=== PATIENT | female | born 1960 | race Two or more races ===

== ENCOUNTER → 2017-01-30 | Outpatient (CLI) | payer OTHER ==
--- NOTE | 2017-01-30 16:29 | RADRPT ---
PROCEDURE: Right knee radiographs. CLINICAL INDICATION: Right knee pain. TECHNIQUE: Four views. Weight bearing. Frontal, lateral, oblique, and patellar view. COMPARISON: No prior studies are available for comparison. FINDINGS: There is no fracture or dislocation. The soft tissues are normal. There are degenerative changes with osteophytes arising from all 3 joint compartment margins. There is lateral joint compartment narrowing. There is no lytic or blastic lesion. There is no radiopaque foreign body. IMPRESSION: 1. Moderate degenerative changes of the right knee. 2. Otherwise unremarkable study. RPTAT: QQ .Edgar Dickerson MD, MD Date Time Electronically viewed and signed by .Edgar Dickerson MD, on 01/30/2017 16:29 .R/
--- NOTE | 2017-01-31 04:29 | HKNOTE ---
DATE OF SERVICE: 01/30/2017 CHIEF COMPLAINT: Right knee pain. HISTORY OF PRESENT ILLNESS: This is a 56-year-old female complaining of chronic right knee pain. T he pain has been worsening over the last year. She is using a cane for ambulation. She has difficu lty navigating stairs and ambulating long distances. She has difficulty sitting for extended period of time. She is unable to perform her activities of daily living. She has had previous right knee arthroscopic meniscectomies by Dr. Lewis in 10/[address] [facility]. She has also had previo us corticosteroid injections of the right knee without any pain relief. She has a history of type 1 diabetes. Her blood sugars are in the 200s according to the and her last hemoglobin A1c le michael was 7.3. She is currently talking to her primary care physician regarding an insulin pump. She denies any groin or back pain. She has no other complaints. GAIT: Antalgic gait with a limp. RIGHT KNEE EXAMINATION: Neutral alignment. Previous arthroscopy incisions have healed, 0 to 120 de grees range of motion, stable to varus valgus stress, negative Nicolas, negative anterior drawer, ne gative posterior drawer, positive Chris's. MOTOR STRENGTH: 5/5 hamstrings, quadriceps, tibialis anterior, gastrocsoleus. MRI RIGHT KNEE: MRI from 08/2015 demonstrates a large complex tear of the lateral meniscus anterior horn and posterior horn as well as an oblique tear of the medial meniscus with full thickness carti matthias loss of bilateral compartments. X-RAYS RIGHT KNEE: 4 views of the right knee demonstrate tricompartmental osteoarthritis with bone- on-bone arthritic changes of the lateral compartment as well as the patellofemoral joint with margin al osteophytes and subchondral sclerosis. IMPRESSION: A 56-year-old female with right knee osteoarthritis who has failed nonoperative managem ent. PLAN: I discussed treatment options with Mrs. Grullon and her . I discussed repeat injectio ns, physical therapy and pain medications versus operative intervention including a right total knee arthroplasty. At this time, they would like to proceed with surgery. We will request authorizatio n for right total knee arthroplasty. She will follow up following approval of the authorization. Dictated By: AURELIO GUNTER/VIOLETA Conf#: [id number] [facility]#: [id number]
== END | disposition home or self-care (01) ==
LOC: HKI 14:20
PROVIDERS: ATTEND Orthopaedic Surgery Adult Reconstructive Orthopaedic Surgery
DX: M17.11 Unilateral primary osteoarthritis, right knee (principal); E10.9 Type 1 diabetes mellitus without complications
CPT/HCPCS: G0463

== ENCOUNTER → 2018-01-05 | Outpatient (CLI) | END | disposition home or self-care (01) ==

== ENCOUNTER → 2018-04-23 | Outpatient (CLI) | payer OTHER ==
--- NOTE | 2018-04-23 12:45 | CONS ---
Date/Time of Note Date/Time of Note DATE: 04/23/18 TIME: 12:21 Assessment/Plan Assessment/Plan Assessment/Plan 57-year-old female presented my clinic today to discuss potential right total knee arthroplasty. She does have a medical history significant for type 1 diabetes. In her past she has had her HgbA1c as high as 12. She was then put on insulin pump and her HgbA1c several months ago was 7.3. However the patient did tell me today that her HgbA1c was redrawn 2 weeks ago and is now 7.9. Given that her is elevated and is [id number] in the wrong direction I am recommending that she does not proceed with a right total knee arthroplasty at this time. Her diabetes needs to be under better control. I understand it may not be possible to bring her down to the ideal level of 7 or below however the f act that it is trending upward is concerning. Otherwise she is a good surgical candidate. I explained the patient that this does increased perioperative risks including infection and that I am recommending delay of surgery in order to make the surgery as safe as possible. She understood this. I am confident that her HgbA1c can be decreased to at least her previous level of 7.3 which would be acceptable for surgery. Plan: Follow-up with PCP and have new HgbA1c drawn at appropriate time. Follow-up after HgbA1c results Consultation Date/Type/Reason Admit Date/Time Date of Consultation: Apr 23, 2018 Reason for Consultation right Knee pain Hx of Present Illness Is a 57-year-old female with type 1 diabetes with a chief complaint of right knee pain. This patient was previously seen by my partner. Secondary to scheduling issues her surgery needed to be rescheduled. To avoid a significant delay in surgery my partner asked me if I could take over the patient's care. The pain began approximately years ago. She had a lateral meniscectomy 3 years ago. The patients pain is in the lateral aspect of the right knee. Pain is not radiating to the lower leg. The pain is rated as a 7/10. Patient denies complaints of numbness or tingling. The pain is exacerbated by climbing stairs and ambulation. Pain is not relieved by NSAID's. Duration: Years Injury: Yes Walking tolerance: Limited 1/2 block Limp: Yes Support: No Swelling: No Crepitation: Yes Instability: no Stairs: Difficult Physical Therapy: Yes Injections: 2 years ago, did not help NSAIDs: Yes Prior surgery: Right lateral meniscectomy 3 years ago Back pain: No Hip pain: No Risk of AVN : No Patient denies fever, chills, shortness of breath, chest pain, nausea/vomiting, constipation, diarrhea, numbness, and tingling. Past Medical History Type 1 diabetes - patient on insulin pump Past Surgical History Right knee meniscectomy Family History Significant Family History: no pertinent family hx Social History Alcohol Use: none Smoking Status: Never smoker Drug Use: none Exam/Review of Systems Vital Signs Vitals Weight: 145 pounds Height: 5 feet 2 inches Temperature: 98.0 Heart Rate: 63 Blood Pressure: 187/80 Respiratory Rate: 14 Exam General: Alert, oriented x3. No Acute Distress. Heart: Regular rate and rhythm. Lungs: No respiratory distress. No accessory muscle use. Musculoskeletal: Right Knee This is a well developed female who is alert, oriented times three and in no apparent distress. Skin is intact over the right knee as well as the lower extremity with no abrasions, lacerations, or ulcerations. Observation of the patient's gait reveals an antalgic gait with Valgus thrust. Frontal plane alignment is valgus and is correctable. There is pain on palpation of lateral joint line. The patient demonstrates grinding anteriorly with ROM. Range of motion: 5 extension to approximately 120 degrees of flexion. Collateral ligament testing reveals no instability with varus or valgus stress at 0 and 30 degrees of flexion. MCL with good endpoint. Negative Nicolas's and negative posterior drawer. Neurovascularly intact with 5/5 EHL/tibialis anterior/gastroc. Sensation intact to light touch in a sural, saphenous, deep peroneal, superficial peroneal, medial and lateral plantar nerve distribution. Palpable, symmetric dorsalis pedis and posterior tibial pulses in both lower extremities. Hip examination normal. Imaging Imaging Previously obtained knee x-rays from January that are weightbearing and include AP, PA flex, lateral, merchant view were personally reviewed today. Valgus alignment. X-rays demonstrate near complete loss of articular cartilage in the lateral compartment. There is moderate loss of joint space in the patellof emoral joint. There is osteophyte formation, subchondral sclerosis, subchondral cysts. No fracture or acute bony abnormality. JASS,KESHA MD Apr 23, 2018 12:44
== END | disposition home or self-care (01) ==
LOC: HKI 10:17
PROVIDERS: ATTEND Orthopaedic Surgery Adult Reconstructive Orthopaedic Surgery
DX: Z47.1 Aftercare following joint replacement surgery (principal); Z96.651 Presence of right artificial knee joint
CPT/HCPCS: G0463

== ENCOUNTER → 2018-08-26 | Outpatient (CLI) | payer OTHER ==
--- NOTE | 2018-08-26 18:36 | CONS ---
Consult Date/Type/Reason Admit Date/Time Initial Consult Date Date/Time of Note DATE: 08/26/18 TIME: 18:32 Subjective 58-year-old female with history of type 1 diabetes mellitus who follows up today in clinic to discuss right total knee arthroplasty. She was previously evaluated for this however her HgbA1c increased from 7.3-7.9. She uses an insulin pump. At this time her HgbA1c is back down at 7.4. Her symptoms are worse in severity and otherwise are unchanged. She would like to proceed with planning for right total knee arthroplasty. Of note she did have an arthroscopic knee surgery 4 years ago for lateral meniscus tear. She complains of pain both medially and laterally. Objective Vitals Weight: 152 Height: 5 foot 2 inches BMI: 27.8 Temperature: 90.6 Heart Rate: 61 Blood Pressure: 138/68 Respiratory Rate: 12 Exam General: Alert, oriented x3. No Acute Distress. Heart: Regular rate and rhythm. Lungs: No respiratory distress. No accessory muscle use. Musculoskeletal: Right Knee This is a well developed female who is alert, oriented times three and in no apparent distress. Skin is intact over the right knee as well as the lower extremity with no abrasions, lacerations, or ulcerations. Observation of the patient's gait reveals an antalgic gait with Valgus thrust. Frontal plane alignment is valgus and is correctable. There is pain on palpation of lateral joint line. The patient demonstrates grinding anteriorly with ROM. Range of motion: 5 extension to approximately 120 degrees of flexion. Collateral ligament testing reveals no instability with varus or valgus stress at 0 and 30 degrees of flexion. MCL with good endpoint. Negative Nicolas's and negative posterior drawer. Neurovascularly intact with 5/5 EHL/tibialis anterior/gastroc. Sensation intact to light touch in a sural, saphenous, deep peroneal, superficial peroneal, medial and lateral plantar nerve distribution. Palpable, symmetric dorsalis pedis and posterior tibial pulses in both lower extremities. Hip examination normal. Assessment/Plan Hospital Course (Demo Recall) 58-year-old female with type 1 diabetes with end-stage osteoarthritis of her right knee most severely affecting her lateral compartment. Her HgbA1c which is much improved from before. At this time this is optimized is now 7.4. Plan: Schedule for right TKA Authorization for full length scanogram films Follow-up at preop Medical clearance KESHA REGAN MD August 26, 2018 18:36
== END | disposition home or self-care (01) ==
LOC: HKI 09:27
PROVIDERS: ATTEND Orthopaedic Surgery Adult Reconstructive Orthopaedic Surgery
DX: M17.11 Unilateral primary osteoarthritis, right knee (principal); E11.9 Type 2 diabetes mellitus without complications; Z79.4 Long term (current) use of insulin
CPT/HCPCS: G0463

== ENCOUNTER → 2018-09-21 | Outpatient (CLI) | payer OTHER ==
--- NOTE | 2018-09-21 14:44 | CONS ---
Consult Date/Type/Reason Admit Date/Time Initial Consult Date Date/Time of Note DATE: 09/21/18 TIME: 14:39 Subjective Kayla Grullon is here today with osteoarthritis of the right knee. The patient has been having problems for the last several years. The patient rates the pain 8/10. The patient has failed conservative therapy. The patient is here for a preoperative visit. Objective Exam General: Alert, oriented x3. No Acute Distress. Heart: Regular rate and rhythm. Lungs: No respiratory distress. No accessory muscle use. Musculoskeletal: Right Knee This is a well developed female who is alert, oriented times three and in no apparent distress. Skin is intact over the right knee as well as the lower extremity with no abrasions, lacerations, or ulcerations. Observation of the patient's gait reveals an antalgic gait with Valgus thrust. Frontal plane alignment is valgus and is correctable. There is pain on palpation of lateral joint line. The patient demonstrates grinding anteriorly with ROM. Range of motion: 5 extension to approximately 120 degrees of flexion. Collateral ligament testing reveals no instability with varus or valgus stress at 0 and 30 degrees of flexion. MCL with good endpoint. Negative Nicolas's and negative posterior drawer. Neurovascularly intact with 5/5 EHL/tibialis anterior/gastroc. Sensation intact to light touch in a sural, saphenous, deep peroneal, superficial peroneal, medial and lateral plantar nerve distribution. Palpable, symmetric dorsalis pedis and posterior tibial pulses in both lower extremities. Hip examination normal. Results/Medications Imaging The patient received a standard set of films today that were personally reviewed. Imaging included a standing bilateral knee AP, PA flexion, merchant views and a dedicated lateral of the affected knee: There is valgus alignment of the knee. There is complete loss of joint space lateral compartment(s). There is osteophyte formation. There is subchondral sclerosis. There are subchondral cysts. Degenerative changes are most severe in the lateral compartment(s) Assessment/Plan Hospital Course (Demo Recall) The patient has osteoarthritis of the right knee involving primarily the lateral compartment(s). The patient has failed conservative treatment. Patient has a past medical history for type 1 diabetes. She is on a insulin pump. Medical Clearance pending ----- A lengthy discussion ensued, where the patient was told that if and when the symptoms are intolerable, elective total knee replacement should be considered. The operative procedure was explained using diagrams and or three-dimensional models. The rehabilitation, the potential risks, benefits and alternatives were discussed at length. Specific risks discussed included but were not limited to excessive blood loss and the need for transfusion and therefore the risk of transmissible disease or transfusion reaction, deep infection and the potential need for repetitive debridements, implant removal, long-term antibiotic therapy, possibly requiring deep venous access, extensor mechanism complications, including subluxation or dislocation, disruption of the quadriceps or patellar tendon, fracture of the patella or avulsion of the tibial tuberosity, femoral, tibial or fibular fracture and the need for further surgery for fixation, neurovascular injury with temporary or permanent numbness, tingling, weakness or paralysis, arterial injury requiring surgery including possible amputation, deep venous thrombosis, pulmonary embolism and , persistent pain, weakness, or limp, late aseptic loosening and the need for revision, polyethylene wear- induced osteolysis and related problems, post-operative stiffness requiring closed manipulation, and finally, a wide variety of unanticipated medical problems. The opportunity to ask questions and address any concerns was provided. The patient would like to proceed with scheduling. Face to Face Evaluation for Home Health Care: This is to certify that after date of planned surgery patient will be in need of intermittent prison care, physical therapy and/or occupational therapy as patient will be home bound. This patient is under my care and I have authorized the services on this plan of care and will periodically review the plan. Plan: Right TKA VTE risk stratification: Average VTE prophylaxis: ASA 81 mg twice daily x6 weeks Diabetes management: Continue to use insulin pump Pain control: Standard Telemetry: No MRSA: Pending KESHA REGAN MD Sep 21, 2018 14:44
--- NOTE | 2018-09-22 17:01 | RADRPT ---
PROCEDURE: XR Knees. CLINICAL INDICATION: Bilateral knee pain. TECHNIQUE: Total of eight views. Weightbearing frontal, oblique, and lateral views of the both kne es. Patellar views of both knees. COMPARISON: Right knee radiographs dated 01/30/2017. FINDINGS: On the right side, there are moderate degenerative changes with osteophytes arising from all 3 joint compartment margins. There is lateral joint compartment narrowing. On the left side, there are mild d egenerative changes with small osteophytes arising from all 3 joint compartment margins. There is mil d medial joint compartment narrowing. There is no fracture or dislocation. The soft tissues are normal. There is no lytic or blastic lesion. There is no radiopaque foreign body. IMPRESSION: 1. Moderate degenerative changes of the right knee. 2. Mild degenerative changes of the left knee. RPTAT: QQ .Edgar Dickerson MD, Date Time Electronically viewed and signed by .Edgar Dickerson MD, on 09/22/2018 16:46 .R/
--- NOTE | 2018-09-22 17:01 | RADRPT ---
PROCEDURE: Limited x-ray of both lower extremities. CLINICAL INDICATION: Bilateral leg pain. TECHNIQUE: Single frontal weightbearing view of both lower extremities was obtained from the hips t o the ankles. COMPARISON: None. FINDINGS: The right femur length is 50 cm. The left femur length is 50.5 cm. The right tibia length is 37.6 cm. The left tibia length is 37.7 cm. There is mild degenerative change of both hips and knees. IMPRESSION: 1. Leg length as described above. 2. Mild degenerative changes of both hips and knees. RPTAT: QQ .Edgar Dickerson MD, Date Time Electronically viewed and signed by .Edgar Dickerson MD, on 09/22/2018 16:45 .R/
== END | disposition home or self-care (01) ==
LOC: HKI 13:27
PROVIDERS: ATTEND Orthopaedic Surgery Adult Reconstructive Orthopaedic Surgery
DX: Z01.818 Encounter for other preprocedural examination (principal); M17.11 Unilateral primary osteoarthritis, right knee
CPT/HCPCS: 73564; 77073; Z7500; G0463

== ENCOUNTER → 2018-09-30 12:37 | Inpatient (IN) | payer OTHER ==
[2018-09-29] VITALS (32 sets, daily range): BP systolic 95–153; BP diastolic 51–78; PULSE 61–94; RESP 12–28; Ht 144.8 cm; Wt 70.5 kg
--- NOTE | 2018-09-29 11:28 | HPN ---
Date/Time of Note Date/Time of Note DATE: 09/29/18 TIME: 11:28 Interval H&P Admission Note Pt. seen H&P reviewed: No system changes Patient denies fever, chills, shortness of breath, chest pain, nausea/vomiting, constipation, diarrhea, numbness, and tingling. MUSCULOSKELETAL: Right lower extremity Skin intact Sensation intact to light touch in a sural, saphenous, deep peroneal, superficial peroneal, medial and lateral plantar nerve distribution. Motor is intact, patient able to dorsiflex and plantarflex ankle and extend and flex great toe. Dorsalis Pedis pulse +2, Brisk capillary refill. Compartments are soft. Calves non-tender to palpation bilaterally. KESHA REGAN MD Sep 29, 2018 11:28
--- NOTE | 2018-09-29 11:51 | PREAC ---
Date/Time of Note Date/Time of Note DATE: 09/29/18 TIME: 11:49 Anesthesia Eval and Record Evaluation Time Pre-Procedure Interview DATE: 09/29/18 TIME: 11:49 Age 58 Sex female NPO: 8 hrs Preoperative diagnosis RIGHT KNEE PRIMARY OA Planned procedure RIGHT KNEE TOTAL ARTHROPASTY Past Medical History Past Medical History: Includes Cardio: HTN, Dyslipidemia Endo: Diabetes, Hypothyroid GI: Obesity Surgery & Anesthesia Issues No known issue Meds Anticoagulation: No Beta Steve within 24 hr: No Reason Beta Steve not given: Pt. not on B-Steve Reported Medications Insulin Lispro (Humalog) 100 Unit/1 Ml Cartridge, 100 UNIT SQ USES A PUMP, EA ADMELOG 09/29/18 Tocilizumab (Actemra) 200 Mg/10 Ml Vial, 200 MG IV EVERY 14 DAYS, VIAL 09/29/18 Omeprazole* (Omeprazole*) 40 Mg Capsule.dr, 40 MG PO DAILY, #30 CAP 09/29/18 Lisinopril* (Lisinopril*) 20 Mg Tablet, 20 MG PO DAILY, #30 TAB 09/29/18 Levothyroxine Sodium* (Levoxyl*) 100 Mcg Tablet, 100 MCG PO BEFORE BREAKFAST, #30 TAB 09/29/18 Gabapentin* (Gabapentin*) 100 Mg Capsule, 100 MG PO DAILY, #90 CAP 09/29/18 Atorvastatin* (Atorvastatin*) 80 Mg Tablet, 80 MG PO QHS, #30 TAB 09/29/18 Current Medications Lactated Ringer's 1,000 ml @ 125 mls/hr Q8H IV ; Start 09/29/18 at 07:00; Stop 09/29/18 at 14:59 Ropivacaine/ Clonidine/ Epinephrine/ Ketorolac Tromethamine/ Sodium Chloride INTRA-OP INJ ; Start 09/29/18 at 07:00 Meds reviewed: Yes Allergies Coded Allergies: Penicillins (Verified Allergy, Unknown, 09/29/18) Allergies Reviewed: Yes Labs/Studies Labs Reviewed: Reviewed by anesthesiologist test: N/A Studies: ECG (sb), CXR (NL) Pre-procedure Exam Last vitals Vital Signs Date Temp Pulse Resp B/P (MAP) Pulse Ox O2 O2 Flow FiO2 Time Delivery Rate 09/29/18 97.4 16 153/72 100 Room Air 10:36 (99) Airway: Adequate mouth opening Mallampati: Mallampati I Teeth: Normal Lung: Normal Heart: Normal ASA Physical Status ASA physical status: 2 Emergency: None Planned Anesthetic General/MAC: ETT, LMA Neuraxial: Spinal Nerve block: Femoral (right) Planned Pain Management Sub-arachniod narcotics, Single shot nerve block, Parenteral pain med Pre-operative Attestations Prior to commencing anesthesia and surgery, the patient was re-evaluated, there was verification of: *The patient's identity *The results of appropriate recent lab work and preoperative vital signs *The above evaluation not changing prior to induction *Anesthetic plan, risk benefits, alternative and complications discussed with patient/family; questions answered; patient/family understands, accepts and wishes to proceed. ZACARIAS MCNEAL MD Sep 29, 2018 11:51
[2018-09-29] MEDS: CEFAZOLIN 2 GM/50 ML (PMX) 50 ML IVPB SCH (16:38)
--- NOTE | 2018-09-29 16:39 | CONS ---
Assessment/Plan Assessment/Plan Hospital Course (Demo Recall) 58 yo F with PMH Diabetes, HTN, hypothyroidism, and chronic right knee pain presented for elective right total knee replacement. POD #0 Assessment/Plan (Daily) 1. Right knee osteoarthritis s/p total right knee replacement. POD #0 - ortho on board - PT on board for discharge planning - pain control 2. Diabetes mellitus - Notes from patients outpatient floral associate noted. patient is usually on insulin pump but d/c right now - Will continue on Novolog 3 units with meals and Lantus 24 units in the am. will d/c on this regime and insulin pump to be resumed by outpatient floral associate - ISS and accuchecks. 3. HTN - continue home BP medications 4. Hypothyroidism - will continue on levothyroxine 5. GI ppx - PPI 6. Disposition - Continue home medications and will adjust as needed - PT on board for discharge planning Consultation Date/Type/Reason Admit Date/Time Sep 29, 2018 at 07:28 Date of Consultation: Sep 29, 2018 Type of Consult Internal Medicine Reason for Consultation Medical management Date/Time of Note DATE: 09/29/18 TIME: 16:30 Hx of Present Illness 58 yo F with PMH Diabetes, HTN, hypothyroidism, and chronic right knee pain presented for elective right total knee replacement. Patient was interviewed in PACU and medicine consulted for diabetic management. Patient tolerating leno gical intervention without any intraoperative complications. Patient was complaining of diffuse pruritus but refused any Benadryl. Denies any shortness of breath or sensation of throat closing. Denies any chest pain, shortness of breath, nausea, vomiting or abdominal pain. All 12 systems reviewed and pertinent positives as per HPI. All others negative. Constitutional: No disoriented Eyes: No discharge ENT: No congestion Respiratory: No cough, No shortness of breath, No sputum, No wheezing Cardiovascular: No chest pain, No lightheadedness, No palpitations Gastrointestinal: No pain, No diarrhea, No nausea, No vomiting Genitourinary: no complaints Musculoskeletal: no complaints Skin: pruritis Neurologic: no complaints Endocrine: no complaints Lymphatic: no complaints Psychological: nl mood/affect Past Medical History Medical History: diabetes, hypertension, hypothyroid Home Meds Reported Medications Insulin Lispro (Humalog) 100 Unit/1 Ml Cartridge, 100 UNIT SQ USES A PUMP, EA ADMELOG 09/29/18 Tocilizumab (Actemra) 200 Mg/10 Ml Vial, 200 MG IV EVERY 14 DAYS, VIAL 09/29/18 Omeprazole* (Omeprazole*) 40 Mg Capsule.dr, 40 MG PO DAILY, #30 CAP 09/29/18 Lisinopril* (Lisinopril*) 20 Mg Tablet, 20 MG PO DAILY, #30 TAB 09/29/18 Levothyroxine Sodium* (Levoxyl*) 100 Mcg Tablet, 100 MCG PO BEFORE BREAKFAST, #30 TAB 09/29/18 Gabapentin* (Gabapentin*) 100 Mg Capsule, 100 MG PO DAILY, #90 CAP 09/29/18 Atorvastatin* (Atorvastatin*) 80 Mg Tablet, 80 MG PO QHS, #30 TAB 09/29/18 Medications Current Medications Hydromorphone HCl (Dilaudid) 0.2 mg PACU PRN IV MILD PAIN 1-3; Start 09/29/18 at 13:00; Stop 09/29/18 at 19:00 Hydromorphone HCl (Dilaudid) 0.4 mg PACU PRN IV MOD PAIN 4-6; Start 09/29/18 at 13:00; Stop 09/29/18 at 19:00 Hydromorphone HCl (Dilaudid) 0.6 mg PACU PRN IV SEVERE PAIN 7-10; Start 09/29/18 at 13:00; Stop 09/29/18 at 19:00 Fentanyl (Sublimaze) 25 mcg PACU ORDER PRN IV MILD PAIN 1-3; Start 09/29/18 at 13:00; Stop 09/29/18 at 19:00 Fentanyl (Sublimaze) 50 mcg PACU ORDER PRN IV MOD PAIN 4-6; Start 09/29/18 at 13:00; Stop 09/29/18 at 19:00 Fentanyl (Sublimaze) 75 mcg PACU ORDER PRN IV SEVERE PAIN 7-10; Start 09/29/18 at 13:00; Stop 09/29/18 at 19:00 Ondansetron HCl (Zofran Inj) 4 mg PACU ORDER PRN IV NAUSEA/VOMITING; Start 09/29/18 at 13:00; Stop 09/29/18 at 19:00 Meperidine HCl (Demerol) 25 mg PACU ORDER PRN IV .RIGORS; Start 09/29/18 at 13:00; Stop 09/29/18 at 19:00 Diphenhydramine HCl (Benadryl) 25 mg PACU ORDER PRN IV .PRURITUS; Start 09/29/18 at 13:00; Stop 09/29/18 at 19:00 Lactated Ringer's 1,000 ml @ 80 mls/hr [id number] IV ; Start 09/29/18 at 15:36 IV Flush (NS 3 ml) 3 ml PER PROTOCOL IV ; Start 09/29/18 at 16:00 Oxycodone HCl (Roxicodone) 15 mg Q4H PRN PO .PAIN; Start 09/29/18 at 16:00; Status UNV Oxycodone HCl (Roxicodone) 10 mg Q4H PRN PO .PAIN; Start 09/29/18 at 16:00; Status UNV Oxycodone HCl (Roxicodone) 5 mg Q4H PRN PO .PAIN; Start 09/29/18 at 16:00; Status UNV Hydromorphone HCl (Dilaudid) 1 mg Q3H PRN IV .BREAKTHROUGH PAIN; Start 09/29/18 at 16:00 Acetaminophen (Tylenol Tab) 1,000 mg Q8 PO ; Start 09/29/18 at 22:00 Ketorolac Tromethamine (Toradol) 15 mg Q6H PRN IV .PAIN; Start 09/29/18 at 16:00; Status UNV Ondansetron HCl (Zofran Inj) 4 mg Q4H PRN IV NAUSEA/VOMITING; Start 09/30/18 at 16:00 Gabapentin (Neurontin) 300 mg QHS PO ; Start 09/29/18 at 21:00; Status UNV Pantoprazole (Protonix Tab) 40 mg DAILY@06 PO ; Start 10/01/18 at 06:00; Status UNV Docusate Sodium (Colace) 200 mg BID PO ; Start 09/30/18 at 09:00; Stop 10/03/18 at 08:59; Status UNV Simethicone (Mylicon) 80 mg TID PRN PO .GAS; Start 09/29/18 at 16:00 Senna/Docusate Sodium (Senokot-S) 2 tab BID PRN PO .CONSTIPATION; Start 09/29/18 at 16:00 Magnesium Hydroxide (Milk Of Mag) 30 ml HS PRN PO .CONSTIPATION; Start 09/29/18 at 16:00 Bisacodyl (Dulcolax Supp) 10 mg DAILY PRN MT .CONSTIPATION; Start 09/29/18 at 16:00 Sodium Biphosphate/ Sodium Phosphate (Fleet Enema) 133 ml DAILY PRN MT .CONSTIPATION; Start 09/29/18 at 16:00; Status UNV Diphenhydramine HCl (Benadryl) 25 mg Q4H PRN IV .ITCHING; Start 09/29/18 at 16:00 Naloxone HCl (Narcan) 0.2 mg Q2M PRN IV .RESP RATE; Start 09/29/18 at 16:00 Bethanechol Chloride (Urecholine) 25 mg URINARY CATH D/C PRN PO UNABLE TO VOID; Start 09/29/18 at 16:00; Status UNV Aspirin (Halfprin) 81 mg BID PO ; Start 09/30/18 at 09:00; Status UNV Cefazolin Sodium/ Dextrose 50 ml @ 100 mls/hr Q8H IVPB ; Start 09/29/18 at 16:30; Stop 09/30/18 at 08:59 Allergies: Coded Allergies: Penicillins (Verified Allergy, Unknown, 09/29/18) Past Surgical History Past Surgical Hx: other (right knee meniscetomy) Family History Significant Family History: no pertinent family hx Social History Alcohol Use: none Smoking Status: Former smoker Drug Use: none Exam/Review of Systems Exam Vitals Vital Signs Date Temp Pulse Resp B/P (MAP) Pulse Ox O2 O2 Flow FiO2 Time Delivery Rate 09/29/18 98.4 15:36 09/29/18 16 153/72 100 Room Air 10:36 (99) Exam General: Patient is a pleasant female, mild distress secondary to pruritus HEENT: Atraumatic, normocephalic. The pupils are equal, round and reactive. Extraocular motor are intact Neck: Supple with full range of motion. No rigidity or meningismus Chest: Nontender Lungs: Clear to auscultation bilaterally. no wheezing or rhonchi Heart: Normal S1-S2, Regular rhythm and rate. No murmur, S3, or S4 Abdomen: Soft , nontender, nondistended , bowel sounds are present. No guarding no rebound tenderness , No masses or organomegaly. No costovertebral temporal angle mass Extremities: no cyanosis, clubbing, or edema. Right knee with yuri wrap and ice pack in place Neurologic: Normal mental status, speech normal, cranial nerves II through XII are intact, motor and sensory are intact, Results Results 24hrs Laboratory Tests Test 09/29/18 09:23 09/29/18 11:45 09/29/18 15:33 Bedside Glucose 169 117 133 Medications Medication Current Medications Hydromorphone HCl (Dilaudid) 0.2 mg PACU PRN IV MILD PAIN 1-3; Start 09/29/18 at 13:00; Stop 09/29/18 at 19:00 Hydromorphone HCl (Dilaudid) 0.4 mg PACU PRN IV MOD PAIN 4-6; Start 09/29/18 at 13:00; Stop 09/29/18 at 19:00 Hydromorphone HCl (Dilaudid) 0.6 mg PACU PRN IV SEVERE PAIN 7-10; Start 09/29/18 at 13:00; Stop 09/29/18 at 19:00 Fentanyl (Sublimaze) 25 mcg PACU ORDER PRN IV MILD PAIN 1-3; Start 09/29/18 at 13:00; Stop 09/29/18 at 19:00 Fentanyl (Sublimaze) 50 mcg PACU ORDER PRN IV MOD PAIN 4-6; Start 09/29/18 at 13:00; Stop 09/29/18 at 19:00 Fentanyl (Sublimaze) 75 mcg PACU ORDER PRN IV SEVERE PAIN 7-10; Start 09/29/18 at 13:00; Stop 09/29/18 at 19:00 Ondansetron HCl (Zofran Inj) 4 mg PACU ORDER PRN IV NAUSEA/VOMITING; Start 09/29/18 at 13:00; Stop 09/29/18 at 19:00 Meperidine HCl (Demerol) 25 mg PACU ORDER PRN IV .RIGORS; Start 09/29/18 at 13:00; Stop 09/29/18 at 19:00 Diphenhydramine HCl (Benadryl) 25 mg PACU ORDER PRN IV .PRURITUS; Start 09/29/18 at 13:00; Stop 09/29/18 at 19:00 Lactated Ringer's 1,000 ml @ 80 mls/hr [id number] IV ; Start 09/29/18 at 15:36 IV Flush (NS 3 ml) 3 ml PER PROTOCOL IV ; Start 09/29/18 at 16:00 Oxycodone HCl (Roxicodone) 15 mg Q4H PRN PO .PAIN; Start 09/29/18 at 16:00; Status UNV Oxycodone HCl (Roxicodone) 10 mg Q4H PRN PO .PAIN; Start 09/29/18 at 16:00; Status UNV Oxycodone HCl (Roxicodone) 5 mg Q4H PRN PO .PAIN; Start 09/29/18 at 16:00; Status UNV Hydromorphone HCl (Dilaudid) 1 mg Q3H PRN IV .BREAKTHROUGH PAIN; Start 09/29/18 at 16:00 Acetaminophen (Tylenol Tab) 1,000 mg Q8 PO ; Start 09/29/18 at 22:00 Ketorolac Tromethamine (Toradol) 15 mg Q6H PRN IV .PAIN; Start 09/29/18 at 16:00; Status UNV Ondansetron HCl (Zofran Inj) 4 mg Q4H PRN IV NAUSEA/VOMITING; Start 09/30/18 at 16:00 Gabapentin (Neurontin) 300 mg QHS PO ; Start 09/29/18 at 21:00; Status UNV Pantoprazole (Protonix Tab) 40 mg DAILY@06 PO ; Start 10/01/18 at 06:00; Status UNV Docusate Sodium (Colace) 200 mg BID PO ; Start 09/30/18 at 09:00; Stop 10/03/18 at 08:59; Status UNV Simethicone (Mylicon) 80 mg TID PRN PO .GAS; Start 09/29/18 at 16:00 Senna/Docusate Sodium (Senokot-S) 2 tab BID PRN PO .CONSTIPATION; Start at 16:00 Magnesium Hydroxide (Milk Of Mag) 30 ml HS PRN PO .CONSTIPATION; Start 09/29/18 at 16:00 Bisacodyl (Dulcolax Supp) 10 mg DAILY PRN MT .CONSTIPATION; Start 09/29/18 at 16:00 Sodium Biphosphate/ Sodium Phosphate (Fleet Enema) 133 ml DAILY PRN MT .CONSTIPATION; Start 09/29/18 at 16:00; Status UNV Diphenhydramine HCl (Benadryl) 25 mg Q4H PRN IV .ITCHING; Start 09/29/18 at 16:00 Naloxone HCl (Narcan) 0.2 mg Q2M PRN IV .RESP RATE; Start 09/29/18 at 16:00 Bethanechol Chloride (Urecholine) 25 mg URINARY CATH D/C PRN PO UNABLE TO VOID; Start 09/29/18 at 16:00; Status UNV Aspirin (Halfprin) 81 mg BID PO ; Start 09/30/18 at 09:00; Status UNV Cefazolin Sodium/ Dextrose 50 ml @ 100 mls/hr Q8H IVPB ; Start 09/29/18 at 16:30; Stop 09/30/18 at 08:59 REEMA KIM MD Sep 29, 2018 16:39
--- NOTE | 2018-09-29 16:56 | OPR ---
Date/Time of Note Date/Time of Note DATE: 09/29/18 TIME: 16:47 Operative Report Procedure Date: Sep 29, 2018 Preoperative Diagnosis Right knee osteoarthritis Postoperative Diagnosis Right knee osteoarthritis Operation/Procedure Performed Right total knee arthroplasty Intraoperative use of navigation Surgeon see signature line Spray Operator Irvin Melendez Anesthesia Type: general, spinal Tourniquet Time: 90 minutes Estimated Blood Loss: 10 - 50 ml's Transfusion none Specimen None Grafts/Implants Depuy Sigma Femur: size 2.5 PS Tibia: Size 2 Poly insert: size 2 PS, 10 mm thickness Patella: 32 mm Complications none Pt Condition Post Procedure: stable Disposition: PACU Procedure Description PREOP DIAGNOSIS: Right knee osteoarthritis POSTOP DIAGNOSIS: Same. SURGICAL PROCEDURE: Right total knee arthroplasty. Intraoperative use of navigation CPT CODE: 85859. INDICATIONS AND CONSENT: The patient is a 58 year-old woman, with an orthopaedic history consistent with progressively worsening knee pain. She has type 1 diabetes. She is on an insulin pump. They have maximized nonoperative measures, which have included activity modification, medicines, intra-articular injections. On physical exam, they have valgus alignment, no previous open surgical scars. They have ROM 10- 120, no gross ligamentous instability. No significant venous stasis or edema. Distally neurovascular intact. They were offered a knee replacement. A lengthy discussion ensued, where the patient was told that if and when the symptoms are intolerable, elective total knee replacement should be considered. The operative procedure was explained using diagrams and or three-dimensional models. The rehabilitation, the potential risks, benefits and alternatives were discussed at length. Specific risks discussed included but were not limited to excessive blood loss and the need for transfusion and therefore the risk of transmissible disease or transfusion reaction, deep infection and the potential need for repetitive debridements, implant removal, long-term antibiotic therapy, possibly requiring deep venous access, extensor mechanism complications, including subluxation or dislocation, disruption of the quadriceps or patellar tendon, fracture of the patella or avulsion of the tibial tuberosity, femoral, tibial or fibular fracture and the need for further surgery for fixation, neurovascular injury with temporary or permanent numbness, tingling, weakness or paralysis, arterial injury requiring surgery including possible amputation, deep venous thrombosis, pulmonary embolism and , persistent pain, weakness, or limp, late aseptic loosening and the need for revision, polyethylene wear- induced osteolysis and related problems, post-operative stiffness requiring closed manipulation, and finally, a wide variety of unanticipated medical problems. The opportunity to ask questions and address any concerns was provided. The patient elected to proceed with TKA. FINDINGS: Complete loss of cartilage in the lateral compartment. Moderate severe osteoarthritis in the medial patellofemoral compartments. Tight lateral structures. SURGERY IN DETAIL: Patient was taken into the Operating Room, placed supine on the operating table. Preoperatively, they were given weight-based dosing of Ancef and if MRSA positive vancomycin was given in addition. Tourniquet was placed to the right proximal thigh. Regional anesthesia was administered by Anesthesia Department. Right lower extremity was prepped and draped in sterile fashion. Surgical pause was performed, correctly identifying the patient's name, medical record number, diagnoses, surgical procedure, and laterality of procedure. The leg was elevated, exsanguinated with an Esmarch, tourniquet was inflated to 250 mmHg, remained inflated for 90 minutes, after which it was deflated. An anterior midline incision approximately 15-20 cm in length was made, centered over the patella ending just medial to the tibial tubercle. Skin and subcutaneous tissue sharply dissected down the Nina's fascia superiorly, which was incised in line with skin incision. The quadriceps tendon, medial patellar retinaculum, patellar tendon were visualized. A medial parapatellar arthrotomy was performed. The proximal medial tibia was subperiosteally exposed for a distance of 4 cm from joint line. The deep infrapatellar bursa was incised. The patella was everted and the knee was flexed, while protecting the insertion of patellar tendon. A 3/8-inch curved osteotome was used to enter the semimembranosus bursa at the level of the joint line medially. Medial meniscus was excised at the meniscal- synovial junction. The anterior cruciate ligament was excised. The posterior cruciate ligament was excised with electrocautery from the intercondylar region and a posterior retractor was placed, subluxating the tibia anterolateral to the femur. A hernia was made anterolateral to the lateral meniscus and a right- angle retractor was placed over the anterolateral tibia. A lateral meniscectomy was performed. The inferior lateral geniculate artery was coagulated. The tibia was reduced under the femur. An intramedullary pin was placed for the OrthAlign device. The OrthAlign navigation unit and sensor were calibrated at the back table. The OrthAlign femoral cutting jig was then placed over the central pin, and secured with a medial and lateral pin. The OrthAlign navigation unit and OrthAlign sensor were then attached to the jig. The leg was maneuvered for appropriate capture and calibration. After this was performed, the navigation unit was adjusted for a 0 varus/valgus (neutral mechanical axis) and 2.0-2.5 degree posterior flexion cut. The cutting jig was locked in place. The navigation and sensor unit were then removed. The distal femoral cut was set at 10 mm for the osteotomy . This was then secured with two pins. A distal femoral osteotomy was performed. The OrthAlign femoral jig was then removed. A posterior retractor was placed and an anterolateral retractor was placed on the tibia, subluxating the tibia anterior to the femur. The OrthAlign tibial cutting jig was then applied to the tibia preliminarily with the strap. This w as secured with two pins centered over the medial 1/3 of the tibial tubercle. The offset was established proximally at the ACL footprint. This was then matched distally. Registration was then performed, registering the lateral malleolus and the medial malleolus. After this was performed, the malleolar probe was then utilized to help set the appropriate varus/valgus as well as tibial slope. This was then locked into position. The navigation guide and sensor were then removed. The slotted tibial cutting jig was then applied and secured with two pins. A proximal tibia osteotomy was performed. The tibia was then brought to full extension and a 10 mm spacer block was inserted, and felt to be satisfactory extension gap. The knee was flexed again and the tibial alignment guide was then removed. At this time posterior capsule and lateral compartment as well as the lateral structures elevated. The extension gap was now balanced and rectangular. With the knee flexed to 90 degrees a femoral sizing jig was placed on the distal femur and secured, the femur sized to a size 2.5. Due to preoperative valgus deformity, this was then set on 5 degrees of empiric external rotation, using the posterior condyles. This was parallel to the epicondylar axis. A size 2.5 4-in-1 femoral cutting block was then secured to the femur with two lock pins and an anterior, posterior condylar cut were performed, followed by an anterior chamfer and a posterior chamfer cut. Cutting block was removed. A 10 mm mm spacer was then inserted at 90 degrees of flexion and this was symmetric with the extension gap. An intercondylar box osteotomy was performed using the box cutting guide. A trial tibial base plate, size 2 with a 10 mm cruciate sacrificing polyethylene, and a trial size 2.5 femur were then inserted and the knee was brought to full extension. The patella was everted and the osteochondral junction was exposed. The patella measured 20 mm in thickness. A patellar osteotomy performed leaving 12.5 mm remnant patella. Three lug holes were drilled for the 32 diameter patellar button. The knee then underwent range of motion, soft tissue tension and patellar tracking, everything was symmetric balanced. The patella tracked centrally. The rotation of the tibial component was marked on the tibia. On the tibia, the modular base plate hole was created with the appropriate drills and punches at previously marked rotation. Exposed bony surfaces were thoroughly irrigated and dried. Periarticular injection administered. Cement with antibiotics was mixed at the back table. At the appropriate time and consistency cement was placed in the keel and onto the tibial plateau. Cement was finger pressurized. Cement was placed on the backside of the tibial component and along the keel. The tibial component was placed by hand into the keel and was then impacted and extruded cement removed. Cement was applied to exposed bone of the femur, as well as the posterior condylar portion prostheses, and the femoral component was inserted, extruded cement was then removed. The knee was brought to full extension. The cement unfortunately was too hard at this stage to use for the patella. Therefore was decided to mix 1/2 pack of cement for the patella. Cement was applied to the patella, as well as the patellar button, which was clamped into position. Extruded cement was removed. After the cement completely dried, the knee was flexed, the trial polyethylene was removed. Scored cement was removed. A tourniquet was deflated. Hemostasis was obtained. Pulse lavage was used to irrigate and remove any loose debris from posterior knee. A formal size 2, 10 mm mm polyethylene was inserted, confirmed seated and locked. The knee was reduced, hemostasis obtained. Copious amounts of irrigation was used with pulse lavage to remove and loose debris. The arthrotomy was closed with 1 PDS in a [id number], interrupted fashion, subcutaneous tissues irrigated, closed with 2-0 Vicryl in an inverted, interrupted fashion. The skin was closed with sigrid. A sterile dressing was applied. Sponge, needle and instrument counts were correct at the end of the case. DISPOSITION: Patient transferred to PACU in stable condition. The patient will be weight bearing as tolerated on the operative extremity. PT will begin POD #0 if available. Postoperative AP and lateral of the operative knee will be ordered in PACU. Bilateral knee high SCDs will be worn while admitted. ASA 81mg BID will be given for DVT prophylaxis for 6 weeks. Pain will be controlled with medication. The patient will follow up in clinic in approximately 2 weeks. ESTIMATED BLOOD LOSS: 50 mL. CULTURES: None. PATHOLOGY: Bone. IMPLANTS: Depuy Sigma Femur: size 2.5 PS Tibia: Size 2 Poly insert: size 2 PS, 10 mm thickness Patella: 32 mm NAME OF SURGEONS AND ASSISTANTS: Surgeon: Kesha Santoro MD Spray Operator: KESHA Santos MD Sep 29, 2018 16:55
[2018-09-29] MEDS: INSULIN ASPART [NOVOLOG] 3 ML PEN SC SCH ×3 (17:55→20:13)
[2018-09-29] MEDS: LACTATED RINGER'S 1,000 ML IV SCH ×2 (17:59→20:09)
[2018-09-29] MEDS: DIPHENHYDRAMINE 50 MG INJ IV PRN ×2 (18:10→22:20)
[2018-09-29] MEDS: ACETAMINOPHEN 500 MG TAB PO SCH (22:20)
[~2018-09-30] VITALS: Ht 144.8 cm; Wt 70.5 kg
[2018-09-30] MEDS: CEFAZOLIN 2 GM/50 ML (PMX) 50 ML IVPB SCH ×2 (00:43→09:04)
[2018-09-30 03:39] VITALS: BP 95/52; PULSE 67; RESP 18
[2018-09-30 04:45] VITALS: BP 100/51; PULSE 68; RESP 17
[2018-09-30] MEDS: ACETAMINOPHEN 500 MG TAB PO SCH (06:35)
[2018-09-30 08:23] VITALS: BP 93/72; PULSE 67; RESP 18
--- NOTE | 2018-09-30 08:45 | PAC ---
Date/Time of Note Date/Time of Note DATE: 09/30/18 TIME: 08:45 Post-Anesthesia Notes Post-Anesthesia Note Last documented vital signs Vital Signs Date Temp Pulse Resp B/P (MAP) Pulse Ox O2 O2 Flow FiO2 Time Delivery Rate 09/30/18 97.9 67 18 93/72 (79) 100 Nasal 08:23 Cannula 09/30/18 2.0 04:45 Activity: WNL Respiratory function: WNL Cardiovascular function: WNL Mental status: Baseline Pain reasonably controlled: Yes Hydration appropriate: Yes Nausea/Vomiting absent: No ZACARIAS MCENAL MD Sep 30, 2018 08:45
--- NOTE | 2018-09-30 08:49 | OPPN ---
Date/Time of Note Date/Time of Note DATE: 09/30/18 TIME: 08:45 Anesthesia Follow up Anesthesia Follow up Last documented vital signs Vital Signs Date Temp Pulse Resp B/P (MAP) Pulse Ox O2 O2 Flow FiO2 Time Delivery Rate 09/30/18 97.9 67 18 93/72 (79) 100 Nasal 08:23 Cannula 09/30/18 2.0 04:45 Respiratory function: WNL Cardiovascular function: WNL Comments A 58 year F s/p knee replacement under [place] spinal duramorph for poat op pain POD #1 is doing well. No pain, n/v, itching, headache, ZACARIAS MCNEAL MD Sep 30, 2018 08:49
[2018-09-30] MEDS: INSULIN ASPART [NOVOLOG] 3 ML PEN SC SCH ×2 (08:59→09:00)
--- NOTE | 2018-09-30 09:01 | CONS ---
Assessment/Plan Assessment/Plan Assessment/Plan (Daily) SUBJECTIVE: Was up with physical therapy today. Right knee pain well controlled. OBJECTIVE: Physical Exam General: Obese, 58 year-old female lying in bed in no apparent distress. HEENT: Normocephalic, atraumatic. Eyes: Anicteric sclerae, conjunctivae clear. ENT: Nasal septum midline, oral mucosa moist. Neck supple, no JVD noticed. Respiratory: Bilaterally clear breath sounds. No use of accessory muscles of respiration. No adventitious breath sounds. Cardiovascular: S1, S2 heard. Regular rate and rhythm. Abdomen: Soft, nontender, and nondistended. Bowel sounds positive in all 4 quadrants. Genitourinary: Deferred. Extremities: No cyanosis, no clubbing. Right knee surgical dressing. Peripheral pulses palpable. Neurologic: Cranial nerves II through XII grossly intact. The patient is awake, alert, and oriented. Skin: Normal skin turgor. No skin rashes. Labs & Vitals per chart ASSESSMENT & PLAN 58-year-old female with comorbidities including diabetes mellitus, hypertension, hypothyroidism, and chronic right knee pain who presented for elective right total knee replacement on 09/29/2018. 1. Right knee osteoarthritis. Status post right total knee arthroplasty on 09/29/2018. Postoperative day #1. Continue pain management. Continue physical therapy as per orthopedic surgery recommendations. Anticoagulation as per orthopedic surgery. 2. Diabetes mellitus. Insulin pump off currently. Continue pre-meal insulin and basal insulin as per Endocrinology recommendations. 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 3. Hypertension. Continue lisinopril. 4. Dyslipidemia. Continue statins. 5. Hypothyroidism. Continue Synthroid. 6. Normocytic anemia. Most probably anemia of chronic disease. Monitor H&H closely. 7. Obesity. BMI 33 kg/m. 8. Recommendations. Continue current medical management. Discharge the patient home once cleared by orthopedic surgery. Diet: Carbohydrate controlled diet. Anticoagulation: As per orthopedic surgery. CODE STATUS: Full code. Thank you for the consult. The patient was seen in collaboration with Dr. Herman. Consultation Date/Type/Reason Admit Date/Time Sep 29, 2018 at 07:28 Initial Consult Date 09/29/18 Type of Consult Medical Reason for Consultation Medical management. Requesting Provider: KESHA REGAN MD Date/Time of Note DATE: 09/30/18 TIME: 09:00 Exam/Review of Systems Exam Vitals Vital Signs Date Temp Pulse Resp B/P (MAP) Pulse Ox O2 O2 Flow FiO2 Time Delivery Rate 09/30/18 97.9 67 18 93/72 (79) 100 Nasal 08:23 Cannula 09/30/18 2.0 04:45 Intake and Output 09/29/18 09/29/18 09/30/18 1515:00 23:00 07:00 IntakeIntake Total 2700 ml 150 ml 730 ml OutputOutput Total 250 ml 40 ml 650 ml BalanceBalance 2450 ml 110 ml 80 ml Results Result Diagram: 09/30/18 0447 09/30/18 0447 Results 24hrs Laboratory Tests Test 09/29/18 09:23 09/29/18 11:45 09/29/18 15:33 09/29/18 16:33 Bedside Glucose 169 117 133 153 Test 09/29/18 18:17 09/29/18 20:12 09/30/18 04:47 09/30/18 05:00 Bedside Glucose 155 154 White Blood Count 9.5 Red Blood Count 3.12 L Hemoglobin 10.0 L Hematocrit 30.1 L Mean Corpuscular 96.5 Volume Mean Corpuscular 32.1 Hemoglobin Mean Corpuscular 33.2 Hemoglobin Concent Red Cell 13.5 Distribution Width Platelet Count 194 Mean Platelet 11.2 H Volume Immature 0.300 Granulocytes % Neutrophils % 75.6 Lymphocytes % 16.4 Monocytes % 7.0 Eosinophils % 0.4 Basophils % 0.3 Nucleated Red 0.0 Blood Cells % Immature 0.030 Granulocytes # Neutrophils # 7.2 Lymphocytes # 1.6 Monocytes # 0.7 Eosinophils # 0.0 Basophils # 0.0 Nucleated Red 0.0 Blood Cells # Sodium Level 141 Potassium Level 4.3 Chloride Level 110 Carbon Dioxide 23 Level Anion Gap 8 Blood Urea 20 Nitrogen Creatinine 0.85 Est Glomerular > 60 Filtrat Rate mL/min Glucose Level 192 Calcium Level 7.8 L Urine Color YELLOW Urine Clarity CLEAR Urine pH 5.0 Urine Specific 1.039 H [place] Urine Ketones TRACE A Urine Nitrite NEGATIVE Urine Bilirubin NEGATIVE Urine Urobilinogen NEGATIVE Urine Leukocyte NEGATIVE Esterase Urine Microscopic 49 H RBC Urine Microscopic 2 WBC Urine Bacteria FEW A Urine Hemoglobin 1+ H Urine Glucose NEGATIVE Urine Total 1+ H Protein Test 09/30/18 07:14 09/30/18 08:51 Lab Scanned Report REFERENCE LAB Bedside Glucose 159 Medications Medication Current Medications Lactated Ringer's 1,000 ml @ 80 mls/hr [id number] IV Last administered on 09/29/18at 20:09; Admin Dose 80 MLS/HR; Start 09/29/18 at 15:36 IV Flush (NS 3 ml) 3 ml PER PROTOCOL IV ; Start 09/29/18 at 16:00 Oxycodone HCl (Roxicodone) 15 mg Q4H PRN PO .PAIN; Start 09/29/18 at 16:00 Oxycodone HCl (Roxicodone) 10 mg Q4H PRN PO .PAIN; Start 09/29/18 at 16:00 Oxycodone HCl (Roxicodone) 5 mg Q4H PRN PO .PAIN; Start 09/29/18 at 16:00 Hydromorphone HCl (Dilaudid) 1 mg Q3H PRN IV .BREAKTHROUGH PAIN; Start 09/29/18 at 16:00 Acetaminophen (Tylenol Tab) 1,000 mg Q8 PO Last administered on 09/30/18at 06:35; Admin Dose 1,000 MG; Start 09/29/18 at 22:00 Ketorolac Tromethamine (Toradol) 15 mg Q6H PRN IV .PAIN; Start 09/29/18 at 16:00 Gabapentin (Neurontin) 300 mg QHS PO Last administered on 09/29/18at 20:18; Admin Dose 300 MG; Start 09/29/18 at 21:00 Docusate Sodium (Colace) 200 mg BID PO ; Start 09/30/18 at 09:00; Stop 10/03/18 at 08:59 Simethicone (Mylicon) 80 mg TID PRN PO .GAS; Start 09/29/18 at 16:00 Senna/Docusate Sodium (Senokot-S) 2 tab BID PRN PO .CONSTIPATION; Start 09/29/18 at 16:00 Magnesium Hydroxide (Milk Of Mag) 30 ml HS PRN PO .CONSTIPATION; Start 09/29/18 at 16:00 Bisacodyl (Dulcolax Supp) 10 mg DAILY PRN ID .CONSTIPATION; Start 09/29/18 at 16:00 Sodium Biphosphate/ Sodium Phosphate (Fleet Enema) 133 ml DAILY PRN ID .CONSTIPATION; Start 09/29/18 at 16:00 Diphenhydramine HCl (Benadryl) 25 mg Q4H PRN IV .ITCHING Last administered on 09/29/18at 22:20; Admin Dose 25 MG; Start 09/29/18 at 16:00 Naloxone HCl (Narcan) 0.2 mg Q2M PRN IV .RESP RATE; Start 09/29/18 at 16:00 Bethanechol Chloride (Urecholine) 25 mg URINARY CATH D/C PRN PO UNABLE TO VOID; Start 09/29/18 at 16:00 Aspirin (Halfprin) 81 mg BID PO ; Start 09/30/18 at 09:00 Cefazolin Sodium/ Dextrose 50 ml @ 100 mls/hr Q8H IVPB Last administered on 09/30/18at 00:43; Admin Dose 100 MLS/HR; Start 09/29/18 at 16:30; Stop 09/30/18 at 08:59 Atorvastatin Calcium (Lipitor) 80 mg QHS PO Last administered on 09/29/18at 20:18; Admin Dose 80 MG; Start 09/29/18 at 21:00 Gabapentin (Neurontin) 100 mg DAILY PO ; Start 09/30/18 at 09:00 Levothyroxine Sodium (Synthroid) 100 mcg BEFORE BREAKFAST PO Last administered on 09/30/18at 06:35; Admin Dose 100 MCG; Start 09/30/18 at 07:00 Lisinopril (Zestril) 20 mg DAILY PO ; Start 09/30/18 at 09:00 Pantoprazole (Protonix Tab) 40 mg DAILY@06 PO Last administered on 09/30/18at 06:35; Admin Dose 40 MG; Start 09/30/18 at 06:00 Insulin Aspart (Novolog Insulin Pen) 3 unit WITH MEALS SC ; Start 09/29/18 at 17:55 Insulin Glargine (Lantus) 24 units DAILY@0800 SC ; Start 09/30/18 at 08:00 Insulin Aspart (Novolog Insulin Pen) NOVOLOG *MILD* ALGORITHM WITH MEALS BEDTIME SC ; Start 09/29/18 at 17:55 Miscellaneous Information 1 ea NOTE XX ; Start 09/29/18 at 17:30 Glucose (Glutose) 15 gm Q15M PRN PO DECREASED GLUCOSE; Start 09/29/18 at 17:30 Glucose (Glutose) 22.5 gm Q15M PRN PO DECREASED GLUCOSE; Start 09/29/18 at 17:30 Dextrose (D50w Syringe) 25 ml Q15M PRN IV DECREASED GLUCOSE; Start 09/29/18 at 17:30 Dextrose (D50w Syringe) 50 ml Q15M PRN IV DECREASED GLUCOSE; Start 09/29/18 at 17:30 Glucagon (Glucagen) 1 mg Q15M PRN IM DECREASED GLUCOSE; Start 09/29/18 at 17:30 Glucose (Glutose) 15 gm Q15M PRN BUCCAL DECREASED GLUCOSE; Start 09/29/18 at 17:30 Ondansetron HCl (Zofran Inj) 4 mg Q4H PRN IV NAUSEA/VOMITING; Start 09/29/18 at 16:00 EMILIE DAWN NP Sep 30, 2018 09:01
[2018-09-30 09:04] VITALS: BP 93/50
--- NOTE | 2018-09-30 09:22 | DS ---
Date/Time of Note Date/Time of Note DATE: 09/30/18 TIME: 09:22 Discharge Summary Admission/Discharge Info Admit Date/Time Sep 29, 2018 at 07:28 Discharge Date/Time Patient Condition: Good Hospital Course POD#1 s/p primary right TKA. This morning she is doing very well. Pain is well controlled. Patient is tolerating diet. Patient did well with therapy. Patien t would like to go home today. -Post op H&H stable -PT/OT -Joints pain control protocol -DVT prophylaxis: SCD's, aspirin 81 mg twice daily x6 weeks -Weight bearing status: as tolerated -Post-op XR ordered Planned Discharge Date: Today Discharge to home with home health and home physical therapy Follow-up in clinic in 2 weeks. Home Meds Reported Medications Insulin Lispro (Humalog) 100 Unit/1 Ml Cartridge, 100 UNIT SQ USES A PUMP, EA ADMELOG 09/29/18 Tocilizumab (Actemra) 200 Mg/10 Ml Vial, 200 MG IV EVERY 14 DAYS, VIAL 09/29/18 Omeprazole* (Omeprazole*) 40 Mg Capsule.dr, 40 MG PO DAILY, #30 CAP 09/29/18 Lisinopril* (Lisinopril*) 20 Mg Tablet, 20 MG PO DAILY, #30 TAB 09/29/18 Levothyroxine Sodium* (Levoxyl*) 100 Mcg Tablet, 100 MCG PO BEFORE BREAKFAST, #30 TAB 09/29/18 Gabapentin* (Gabapentin*) 100 Mg Capsule, 100 MG PO DAILY, #90 CAP 09/29/18 Atorvastatin* (Atorvastatin*) 80 Mg Tablet, 80 MG PO QHS, #30 TAB 09/29/18 Primary Care Provider Not On Staff Doctor Pending Labs Laboratory Tests Test 09/29/18 09:23 09/29/18 11:45 09/29/18 15:33 09/29/18 16:33 Bedside 169 117 133 153 Glucose mg/dL (70-220) mg/dL (70-220) mg/dL (70-220) mg/dL (70-220) Test 09/29/18 18:17 09/29/18 20:12 09/30/18 04:47 09/30/18 05:00 Bedside 155 154 Glucose mg/dL (70-220) mg/dL (70-220) White Blood 9.5 Count 10^3/ul (4.8-1 0.8) Red Blood 3.12 Count 10^6/ul (4.20- 5.40) Hemoglobin 10.0 g/dl (12.0-16. 0) Hematocrit 30.1 % (37.0-47.0) Mean 96.5 Corpuscular fl (82.0-101.0 Volume ) Mean 32.1 Corpuscular pg (29.0-33.0) Hemoglobin Mean 33.2 Corpuscular g/dl (32.0-37. Hemoglobin Conc 0) ent Red Cell 13.5 Distribution % (11.5-14.5) Width Platelet Count 194 10^3/UL (140-4 15) Mean Platelet 11.2 Volume fl (7.4-10.4) Immature 0.300 Granulocytes % % (0.001-0.429 ) Neutrophils % 75.6 % (39.0-77.0) Lymphocytes % 16.4 % (15.0-51.0) Monocytes % 7.0 % (0.0-11.0) Eosinophils % 0.4 % (0.0-7.0) Basophils % 0.3 % (0.0-2.0) Nucleated Red 0.0 Blood Cells % /100WBC (0.0-0 .0) Immature 0.030 Granulocytes # 10^3/ul (0.0-0 .031) Neutrophils # 7.2 10^3/ul (1.6-7 .5) Lymphocytes # 1.6 10^3/ul (0.8-2 .9) Monocytes # 0.7 10^3/ul (0.3-0 .9) Eosinophils # 0.0 10^3/ul (0.0-0 .5) Basophils # 0.0 10^3/ul (0.0-0 .1) Nucleated Red 0.0 Blood Cells # 10^3/ul (0.0-0 .0) Sodium Level 141 mmol/L (135-14 4) Potassium 4.3 Level mmol/L (3.5-5. 1) Chloride Level 110 mmol/L (97-110 ) Carbon Dioxide 23 Level mmol/L (21-31) Anion Gap 8 (5-13) Blood Urea 20 Nitrogen mg/dl (7-20) Creatinine 0.85 mg/dl (0.44-1. 00) Est Glomerular > 60 Filtrat mL/min (>60) Rate mL/min Glucose Level 192 mg/dl (70-220) Calcium Level 7.8 mg/dl (8.4-10. 2) Urine Color YELLOW (YELLOW ) Urine Clarity CLEAR (CLEAR) Urine pH 5.0 (5.0-9.0) Urine Specific 1.039 (1.003-1 [place] .030) Urine Ketones TRACE mg/dL (NEGATIV E) Urine Nitrite NEGATIVE mg/dL (NEGATIV E) Urine NEGATIVE Bilirubin mg/dL (NEGATIV E) Urine NEGATIVE Urobilinogen mg/dL (NEGATIV E) Urine Leukocyte NEGATIVE Richard/u Esterase l Urine 49 /HPF (0-5) Microscopic RBC Urine 2 /HPF (0-5) Microscopic WBC Urine Bacteria FEW /HPF (NONE SEEN) Urine 1+ Hemoglobin mg/dL (NEGATIV E) Urine Glucose NEGATIVE mg/dL (NEGATIV E) Urine Total 1+ Protein mg/dl (NEGATIV E) Test 09/30/18 07:14 09/30/18 08:51 Lab Scanned REFERENCE Report LAB [id number] Bedside 159 Glucose mg/dL (70-220) KESHA REGAN MD Sep 30, 2018 09:22
--- NOTE | 2018-09-30 09:22 | PN ---
Date/Time of Note Date/Time of Note DATE: 09/30/18 TIME: 09:20 Assessment/Plan Lines/Catheters IV Catheter Type (from Nrsg): Peripheral IV Chen in Place (from Nrsg): Yes Assessment/Plan Chief Complaint/Hosp Course POD#1 s/p prime right TKA. Pain is well controlled. Patient is tolerating diet. Patient did well with therapy. Patient would like to go home today. -Post op H&H stable -PT/OT -Joints pain control protocol -DVT prophylaxis: SCD's, aspirin 81 mg twice daily x6 weeks -Weight bearing status: as tolerated -Post-op XR ordered -Abx: 24h vanc/ancef -Diet: ADAT -Chen: Discontinued -Discharge planning consult Planned Discharge Date: Today Discharge to home with home health and home physical therapy Subjective 24 Hr Interval Summary Patient doing well No acute events overnight Pain is well controlled Exam/Review of Systems Vital Signs Vitals Vital Signs Date Temp Pulse Resp B/P (MAP) Pulse Ox O2 O2 Flow FiO2 Time Delivery Rate 09/30/18 93/50 (64) 09:04 09/30/18 97.9 67 18 100 Nasal 08:23 Cannula 09/30/18 2.0 04:45 Intake and Output 09/29/18 09/29/18 09/30/18 1515:00 23:00 07:00 IntakeIntake Total 2700 ml 150 ml 730 ml OutputOutput Total 250 ml 40 ml 650 ml BalanceBalance 2450 ml 110 ml 80 ml Exam Free Text/Dictation Right lower extremity: Dressing: clean, dry, and intact, no erythema Sensation intact to light touch in a sural, saphenous, deep peroneal, superficial peroneal, medial and lateral plantar nerve distribution. Motor is intact, patient able to dorsiflex and plantarflex ankle and extend and flex great toe. Dorsalis Pedis pulse +2, Brisk capillary refill. Compartments are soft. Calves non-tender to palpation bilaterally. Results Result Diagram: 09/30/18 0447 09/30/18 0447 KESHA REGAN MD Sep 30, 2018 09:22
[~2018-09-30 12:37] MED LIST: ACETAMINOPHEN 500 MG TAB PO ONE; ASPI-1044 PO; ASPIRIN (EC) 81 MG TAB PO SCH; ATOR-2 PO; ATORVASTATIN 80 MG TAB PO SCH; Acetaminophen PO; BETHANECHOL 25 MG TAB PO PRN; BISACODYL 10 MG SUPP PR PRN; CEFAZOLIN 1 GM INJ ONE; CEFAZOLIN 2 GM/50 ML (PMX) 50 ML IVPB ONE; CEFAZOLIN 2 GM/50 ML (PMX) 50 ML IVPB SCH; CELECOXIB 200 MG CAP PO ONE; DESFLURANE 15 MIN ONE; DEXTROSE 50% 50 ML SYRINGE IV PRN; DIPHENHYDRAMINE 50 MG INJ IV PRN; DOCUSATE SODIUM 100 MG CAP PO ONE; DOCUSATE SODIUM 100 MG CAP PO SCH; FENTAnyl 50 MCG/ML VIAL IV PRN; FENTAnyl 50 MCG/ML VIAL ONE; GABA100C14 PO; GABA300C16 PO; GABAPENTIN 100 MG CAP PO SCH; GABAPENTIN 300 MG CAP PO ONE; GABAPENTIN 300 MG CAP PO SCH; GLUCAGON 1 MG INJ IM PRN; GLUCOSE GEL 15 GRAM TUBE BUCCAL PRN; GLUCOSE GEL 15 GRAM TUBE PO PRN; HYDROmorphONE 1 MG/5 ML IV SYRINGE IV PRN; HYDROmorphONE 1 MG/ML SYG IV PRN; INSU100C SQ; INSULIN GLARGINE [LANTus] (100 UNITS/ML) SYG SC ONE; INSULIN GLARGINE [LANTus] (100 UNITS/ML) SYG SC SCH; KETOROLAC 15 MG INJ IV PRN; KETOROLAC 30 MG INJ ONE; LACTATED RINGER'S 1,000 ML IV SCH; LANSOPRAZOLE 30 MG CAP PO ONE; LEVO100T82 PO; LEVOTHYROXINE 100 MCG TAB PO SCH; LISI-471 PO; LISINOPRIL 20 MG TAB PO SCH; MAGNESIUM HYDROXIDE 30ML CUP PO PRN; MEPERIDINE 25 MG INJ IV PRN; METOCLOPRAMIDE 10 MG INJ ONE; MIDAZOLAM 1 MG/ML 2 ML INJ ONE; NA PHOSPHATE/BIPHOS 133 ML ENEMA PR PRN; NACL 0.9% 3 ML SYG IV SCH; NALOXONE (0.4 MG/ML) INJ IV PRN; OMEP40CA6 PO; ONDANSETRON 4 MG INJ IV ONE; ONDANSETRON 4 MG INJ IV PRN; ONDANSETRON 4 MG INJ ONE; OXYC-481 PO; PANTOPRAZOLE (EC) 40 MG TAB PO SCH; PROPOFOL 20 ML ONE; ROPIVACAINE 0.2% 20 ML VIAL ONE; SENNA/DOCUSATE NA (8.6MG/50MG) TAB PO PRN; TRANEXAMIC ACID 1GM/100ML(PMX) 100 ML AT CLOSING IVPB ONE; TRANEXAMIC ACID 1GM/100ML(PMX) 100 ML PRE-OP IVPB ONE; TRANEXAMIC ACID 1GM/100ML(PMX) 200 ML ONE; [UNRECOGNIZED DRUG - CODE] IV; morphine SULFATE/PF (10 MG/10 ML) INJ ONE; oxyCODONE 5 MG TAB PO PRN
--- NOTE | 2018-10-01 17:12 | RADRPT ---
Vent Rate: 52 bpm RR Interval: 1156 msec [place] Interval: 186 msec QRS Duration: 91 msec QT Interval: 452 msec QTC Interval: 420 msec P-R-T [place]: 38 - 34 - 41 degrees Sinus rhythm...normal P axis, V-rate 50- 99 Electronically Signed By: Xiang Richmond
== END | disposition home health service (06) | DRG 470 ==
LOC: REC 09-29 07:28 → MS1 09-29 17:19
PROVIDERS: ADMIT Orthopaedic Surgery Adult Reconstructive Orthopaedic Surgery; ATTEND Orthopaedic Surgery Adult Reconstructive Orthopaedic Surgery
PROC: 0SRC0J9 Replacement of Right Knee Joint with Synthetic Substitute, Cemented, Open Approach (ICD-10-PCS; principal; 2018-09-29 12:00)
DX: M17.11 Unilateral primary osteoarthritis, right knee (principal); E11.9 Type 2 diabetes mellitus without complications; I10 Essential (primary) hypertension; E78.5 Hyperlipidemia, unspecified; E03.9 Hypothyroidism, unspecified; D64.9 Anemia, unspecified; E66.9 Obesity, unspecified; Z68.33 Body mass index [BMI] 33.0-33.9, adult
CPT/HCPCS: 73560; 80048; 81001; 82962; 85025; 87081; 87086; 88304; 88311; 93005; 97161; 97167; C1713; J0171; J0690; J0735; J1200; J1815; J1885; J2250; J2274; J2405; J2765; J2795; J3010; J7120

== ENCOUNTER 2018-11-25 14:55 | Day surgery (SDC) | payer OTHER ==
[~2018-11-25] VITALS: Ht 147.3 cm; Wt 69.5 kg
[2018-11-25] VITALS (12 sets, daily range): BP systolic 111–145; BP diastolic 54–81; PULSE 58–80; RESP 18–27; Ht 147.3 cm; Wt 69.5 kg
[~2018-11-25 14:55] MED LIST changes: -ACETAMINOPHEN 500 MG TAB PO ONE; -ASPIRIN (EC) 81 MG TAB PO SCH; -ATORVASTATIN 80 MG TAB PO SCH; -BETHANECHOL 25 MG TAB PO PRN; -BISACODYL 10 MG SUPP PR PRN; -CEFAZOLIN 1 GM INJ ONE; -CEFAZOLIN 2 GM/50 ML (PMX) 50 ML IVPB ONE; -CEFAZOLIN 2 GM/50 ML (PMX) 50 ML IVPB SCH; -CELECOXIB 200 MG CAP PO ONE; -DESFLURANE 15 MIN ONE; -DEXTROSE 50% 50 ML SYRINGE IV PRN; -DIPHENHYDRAMINE 50 MG INJ IV PRN; -DOCUSATE SODIUM 100 MG CAP PO ONE; -DOCUSATE SODIUM 100 MG CAP PO SCH; -FENTAnyl 50 MCG/ML VIAL IV PRN; -FENTAnyl 50 MCG/ML VIAL ONE; -GABA100C14 PO; -GABAPENTIN 100 MG CAP PO SCH; -GABAPENTIN 300 MG CAP PO ONE; -GABAPENTIN 300 MG CAP PO SCH; -GLUCAGON 1 MG INJ IM PRN; -GLUCOSE GEL 15 GRAM TUBE BUCCAL PRN; -GLUCOSE GEL 15 GRAM TUBE PO PRN; -HYDROmorphONE 1 MG/5 ML IV SYRINGE IV PRN; -HYDROmorphONE 1 MG/ML SYG IV PRN; -INSULIN GLARGINE [LANTus] (100 UNITS/ML) SYG SC ONE; -INSULIN GLARGINE [LANTus] (100 UNITS/ML) SYG SC SCH; -KETOROLAC 15 MG INJ IV PRN; -KETOROLAC 30 MG INJ ONE; -LACTATED RINGER'S 1,000 ML IV SCH; -LANSOPRAZOLE 30 MG CAP PO ONE; -LEVOTHYROXINE 100 MCG TAB PO SCH; -LISINOPRIL 20 MG TAB PO SCH; -MAGNESIUM HYDROXIDE 30ML CUP PO PRN; -MEPERIDINE 25 MG INJ IV PRN; -METOCLOPRAMIDE 10 MG INJ ONE; -MIDAZOLAM 1 MG/ML 2 ML INJ ONE; -NA PHOSPHATE/BIPHOS 133 ML ENEMA PR PRN; -NACL 0.9% 3 ML SYG IV SCH; -NALOXONE (0.4 MG/ML) INJ IV PRN; -ONDANSETRON 4 MG INJ IV ONE; -ONDANSETRON 4 MG INJ IV PRN; -ONDANSETRON 4 MG INJ ONE; -PANTOPRAZOLE (EC) 40 MG TAB PO SCH; -PROPOFOL 20 ML ONE; -ROPIVACAINE 0.2% 20 ML VIAL ONE; -SENNA/DOCUSATE NA (8.6MG/50MG) TAB PO PRN; -TRANEXAMIC ACID 1GM/100ML(PMX) 100 ML AT CLOSING IVPB ONE; -TRANEXAMIC ACID 1GM/100ML(PMX) 100 ML PRE-OP IVPB ONE; -TRANEXAMIC ACID 1GM/100ML(PMX) 200 ML ONE; -morphine SULFATE/PF (10 MG/10 ML) INJ ONE; -oxyCODONE 5 MG TAB PO PRN
[2018-11-25] MEDS ORDERED: OXYCODONE/ACETAMINOPHEN (5/325) TAB PO PRN ×2 (17:30)
[2018-11-25] MEDS ORDERED: HYDROmorphONE 1 MG/5 ML IV SYRINGE IV PRN ×3 (17:30)
[2018-11-25] MEDS ORDERED: FENTAnyl 50 MCG/ML VIAL IV PRN ×3 (17:30)
[2018-11-25] MEDS ORDERED: LABETALOL HCL 20MG INJ IV PRN (17:30)
[2018-11-25] MEDS ORDERED: ONDANSETRON 4 MG INJ IV PRN (17:30)
[2018-11-25] MEDS ORDERED: hydrALAzine 20 MG INJ IV PRN (17:30)
[2018-11-25] MEDS ORDERED: MIDAZOLAM 1 MG/ML 2 ML INJ ONE (17:48)
[2018-11-25] MEDS ORDERED: PROPOFOL 20 ML ONE (17:48)
[2018-11-25] MEDS ORDERED: KETOROLAC 30 MG INJ ONE (18:02)
[2018-11-25] MEDS ORDERED: SUCCINYLCHOLINE CHLORIDE 100 MG/5 ML SYG IV ONE (18:06)
[2018-11-25] MEDS ORDERED: ROPIVACAINE 0.2% 20 ML VIAL ONE (18:37)
== END 2018-11-25 19:20 | disposition home or self-care (01) ==
LOC: SDS 14:55
PROVIDERS: ATTEND Orthopaedic Surgery Adult Reconstructive Orthopaedic Surgery
DX: M24.661 Ankylosis, right knee (principal); Z96.651 Presence of right artificial knee joint; I10 Essential (primary) hypertension; E78.5 Hyperlipidemia, unspecified; E11.9 Type 2 diabetes mellitus without complications
CPT/HCPCS: 27570; 73560; 82962; J1170; J1885; J2250; J2795; Z7512; Z7610